=== PATIENT | female | born 1995 ===

== ENCOUNTER 2024-01-12 19:47 | Emergency (ER) | payer OTHER, SELFPAY ==
--- NOTE | 2024-01-12 19:48 | ED.URI ---
HPI - URI/Sore Throat General Chief Complaint: Upper Respiratory Infection Stated Complaint: cough Time Seen by Provider: 01/12/24 19:48 Source: patient Mode of arrival: ambulatory Limitations: no limitations History of Present Illness HPI Narrative: Liana is a 28-year-old female patient presenting to the clinic today with complaints a cough, nasal congestion, and scratchy throat for the past 4-6 weeks. She reports no known fever or chills. Is concerned that she may have a virus. Denies any sinus pressure. Is blowing out clear nasal drainage. Related Data Home Medications Medication Instructions Recorded Confirmed No Home Medications 01/12/24 01/12/24 Allergies Allergy/AdvReac Type Severity Reaction Status Date / Time No Known Allergies Allergy Verified 01/12/24 19:55 Review of Systems Review of Systems: Pertinent positives per HPI. Patient denies any fever, chills, rash, headache, visual changes, dizziness, shortness of breath, chest pain, palpitations, nausea, vomiting, diarrhea, constipation, abdominal pain, or any urinary issues. PMFSH Comments At the time of my signature, I reviewed and agree with the nursing past medical, surgical, social, and family history. There is no relevant family history pertinent to the patient complaint. Exam Narrative: General: Well-developed, well nourished, in no apparent distress Head: Normocephalic, atraumatic Eyes: Pupils equally round and reactive to light bilaterally, EOM intact, sclera and conjunctive clear, no discharge, lids normal Ears: TMs intact and clear, ear canals clear, no drainage, grossly hearing normal. Nose: Nares patent, clear nasal discharge, moderate inflammation, no sinus tenderness. Mouth: Oropharynx without lesions or masses, good dentition, MMM. Neck: Supple, trachea midline, no enlargement of anterior or posterior cervical nodes, no thyroid masses or goiter palpable. Cardio: Regular rate and rhythm, s1 and s2 normal, no murmur appreciated. Resp: Clear to auscultation bilaterally anteriorly and posteriorly, no rhonchi, rales, wheezing or rubs Course Course Emergency Course: Portions of this record may have been created with voice recognition software. Level of Care: Express Care Visit Vital Signs Vital signs: Vital Signs Temperature 36.8 C 01/12/24 19:53 Pulse Rate 86 01/12/24 19:53 Respiratory Rate 16 01/12/24 19:53 Blood Pressure 139/81 01/12/24 19:53 Pulse Oximetry 100 01/12/24 19:53 Oxygen Delivery Room Air 01/12/24 19:53 Temperature 36.8 C 01/12/24 19:53 Pulse Rate 86 01/12/24 19:53 Respiratory Rate 16 01/12/24 19:53 Blood Pressure 139/81 01/12/24 19:53 Pulse Oximetry 100 01/12/24 19:53 Oxygen Delivery Room Air 01/12/24 19:53 Vital signs reviewed MDM - URI/Sore Throat MDM Narrative Medical decision making narrative: At the time of visit patient is resting comfortably on the exam table. Patient appears to be nontoxic. Labs: Strep test was obtained and negative in the clinic today. We will send strep for culture. Plan: I suspect patient has allergic rhinitis with postnasal drip. Supportive measures were discussed with the patient and they voiced understanding discharge instructions and agrees to treatment plan. Return precautions reviewed Differential Diagnosis Differential diagnosis: Likely upper respiratory infection, otitis media, sinusitis, viral infection, bronchitis, influenza, pharyngitis and other (COVID, allergic rhinitis) Discharge Plan Discharge Clinical Impression: Allergic rhinitis with postnasal drip Patient Disposition: Home, Self-Care Condition: Stable Instructions: Antibiotic Form, Allergies (ED), Postnasal Drip (DC) Additional Instructions: Strep test was negative in the clinic today. We will send for culture if this comes back positive we will contact him place you on antibiotics at that time. Increase fluids and stay well hydra
[2024-01-12 19:53] VITALS: BP 139/81; PULSE 86; RESP 16; TEMP 36.8; O2SAT 100
== END 2024-01-12 20:19 | disposition home or self-care (01) ==
PROVIDERS: Emergency Provider Nurse Practitioner Family
DX: J30.9 Allergic rhinitis, unspecified (principal); R09.82 Postnasal drip
CPT/HCPCS: 87081; 87880; 99213; G0463